=== PATIENT | female | born 1990 | race Caucasian/White ===

== ENCOUNTER 2017-01-08 04:32 | Inpatient (IN) | payer OTHER ==
[~2017-01-08] VITALS: Ht 152.4 cm; Wt 77.6 kg
[2017-01-08 05:06] LABS: microscopic required? NO
[2017-01-08 05:17] LABS: urine erythrocyte NEGATIVE (NEGATIVE)
[2017-01-08 05:20] LABS: BASOPHIL % 0.3 % (0-2); PLATELET COUNT 363 x10^3mcL (130-400); RED CELL DISTRIBUTION WIDTH 14.5 % (11.5-14.5)
[2017-01-08 06:59] LABS: PHOSPHOROUS 2.9 mg/dL (2.5-4.9)
[2017-01-08 07:26] LABS: T3 TOTAL 1.52 ng/mL
[2017-01-08 07:30] VITALS: BP 111/69
[2017-01-08 07:31] LABS: AMPHETAMINE QUAL UR NONE DETECTED (NEG <=1000)
[2017-01-08 07:42] LABS: FREE T4 1.21 ng/dL (0.76-1.46)
[2017-01-08 09:25] LABS: CALCIUM 8.7 mg/dL (8.5-10.1); CARBON DIOXIDE 21.8 mmol/L (21-32); CHLORIDE SERUM 102 mmol/L (98-107); CREATININE SERUM 0.7 mg/dL (0.6-1.0); GFR1 > 60 mL/min; GLUCOSE SERUM 97 mg/dL (74-106); POTASSIUM SERUM 3.7 mmol/L (3.5-5.1); SODIUM SERUM 138 mmol/L (136-145)
[2017-01-08 11:18] VITALS: BP 111/69
[2017-01-08 13:06] VITALS: BP 91/59
[2017-01-08 17:38] VITALS: BP 108/62
[2017-01-08 21:14] VITALS: BP 102/54
[2017-01-09 06:01] VITALS: BP 100/61
[2017-01-09 07:00] LABS: BASOPHIL % 0.7 % (0-2); PLATELET COUNT 221 x10^3mcL (130-400)
[2017-01-09 07:33] LABS: CALCIUM 7.9 mg/dL (8.5-10.1); CARBON DIOXIDE 21.2 mmol/L (21-32); CHLORIDE SERUM 105 mmol/L (98-107); CREATININE SERUM 0.6 mg/dL (0.6-1.0); GFR1 > 60 mL/min; GLUCOSE SERUM 64 mg/dL (74-106); POTASSIUM SERUM 3.8 mmol/L (3.5-5.1); SODIUM SERUM 136 mmol/L (136-145)
[2017-01-09 09:15] VITALS: BP 112/61
[2017-01-09 13:48] VITALS: BP 107/42
[2017-01-09 16:21] VITALS: BP 107/54; BP 90/51
[2017-01-09 20:56] VITALS: BP 103/73
[2017-01-10 05:51] VITALS: BP 92/50
[2017-01-10 06:11] LABS: BASOPHIL % 0.4 % (0-2); PLATELET COUNT 233 x10^3mcL (130-400); RED CELL DISTRIBUTION WIDTH 13.8 % (11.5-14.5)
[2017-01-10 06:28] LABS: CALCIUM 8.1 mg/dL (8.5-10.1); CARBON DIOXIDE 23.3 mmol/L (21-32); CHLORIDE SERUM 106 mmol/L (98-107); CREATININE SERUM 0.6 mg/dL (0.6-1.0); GFR1 > 60 mL/min; GLUCOSE SERUM 76 mg/dL (74-106); POTASSIUM SERUM 3.6 mmol/L (3.5-5.1); SODIUM SERUM 137 mmol/L (136-145)
[2017-01-10 09:28] VITALS: BP 109/74
[2017-01-10 09:41] VITALS: BP 109/74
[2017-01-10 11:53] VITALS: BP 103/54
[2017-01-10] MEDS ORDERED: PHARMASSURE FO0.4 MG PO (13:35)
== END 2017-01-10 17:40 | disposition home or self-care (01) | DRG 566 ==
LOC: ED 04:32 → DU 06:26
PROVIDERS: Emergency Medicine Emergency Medical Services; ADMIT Family Medicine Sports Medicine
DX: O99.211 Obesity complicating pregnancy, first trimester (principal); E66.9 Obesity, unspecified; O99.511 Diseases of the respiratory system complicating pregnancy, first trimester; F12.10 Cannabis abuse, uncomplicated; Z88.0 Allergy status to penicillin; Z68.33 Body mass index [BMI] 33.0-33.9, adult
CPT/HCPCS: 82962; 84439; J0696; J1170; J1200; J1885; J1956; J2060; J2405; J3010; J7030; Q0092

== ENCOUNTER 2017-04-10 21:59 | Emergency (ER) | payer OTHER ==
[~2017-04-10] VITALS: Ht 165.1 cm; Wt 80.3 kg
[~2017-04-10 21:59] MED LIST: PHARMASSURE FO0.4 MG PO
[2017-04-10 22:12] VITALS: Ht 165.1 cm; Wt 80.3 kg
[2017-04-10 22:53] LABS: BASOPHIL % 0.4 % (0-2); PLATELET COUNT 275 x10^3mcL (130-400); RED CELL DISTRIBUTION WIDTH 13.6 % (11.5-14.5)
[2017-04-10 23:05] LABS: CALCIUM 8.7 mg/dL (8.5-10.1); CARBON DIOXIDE 22.6 mmol/L (21-32); CHLORIDE SERUM 105 mmol/L (98-107); CREATININE SERUM 0.5 mg/dL (0.6-1.0); GFR1 > 60 mL/min; GLUCOSE SERUM 100 mg/dL (74-106); POTASSIUM SERUM 3.5 mmol/L (3.5-5.1); SODIUM SERUM 139 mmol/L (136-145)
[2017-04-10 23:12] LABS: ALKALINE PHOSPHATASE 99 U/L (46-116); ALT/SGPT 9 U/L (14-59); AST/SGOT 11 U/L (15-37); BILIRUBIN TOTAL 0.2 mg/dL (0.20-1.00); LIPASE 100 IU/L (73-393); TOTAL PROTEIN, SERUM 6.9 g/dL (6.4-8.2)
[2017-04-10 23:13] LABS: ALBUMIN 2.8 g/dL (3.4-5.0)
[2017-04-11 00:08] VITALS: BP 158/101
== END 2017-04-11 00:08 | disposition short-term general hospital (02) ==
LOC: ED 21:59
PROVIDERS: Emergency Medicine
DX: O60.02 Preterm labor without delivery, second trimester (principal); Z3A.18 18 weeks gestation of pregnancy
CPT/HCPCS: J1170; J2270; J3010; J3105; Q0092

== ENCOUNTER 2018-05-28 20:39 | Emergency (ER) | payer OTHER ==
[~2018-05-28] VITALS: Ht 152.4 cm; Wt 87.1 kg
[2018-05-28 21:04] VITALS: Ht 152.4 cm; Wt 87.1 kg
[2018-05-28 22:34] LABS: BASOPHIL % 0.5 % (0-2); PLATELET COUNT 301 x10^3mcL (130-400)
[2018-05-28 22:38] LABS: RED CELL DISTRIBUTION WIDTH 15.5 % (11.5-14.5)
[2018-05-28 22:42] LABS: microscopic required? YES; urine erythrocyte 3+ (NEGATIVE)
[2018-05-28 22:43] LABS: CALCIUM 8.3 mg/dL (8.5-10.1); CHLORIDE SERUM 106 mmol/L (98-107); CREATININE SERUM 0.6 mg/dL (0.6-1.0); GFR1 > 60 mL/min; GLUCOSE SERUM 86 mg/dL (74-106); POTASSIUM SERUM 3.8 mmol/L (3.5-5.1); SODIUM SERUM 139 mmol/L (136-145)
[2018-05-28 22:51] LABS: ALKALINE PHOSPHATASE 129 U/L (46-116); ALT/SGPT 22 U/L (14-59); AST/SGOT 15 U/L (15-37); BILIRUBIN TOTAL 0.18 mg/dL (0.20-1.00); LIPASE 92 IU/L (73-393); TOTAL PROTEIN, SERUM 7.3 g/dL (6.4-8.2)
[2018-05-28 22:52] LABS: ALBUMIN 3.3 g/dL (3.4-5.0)
[2018-05-29 00:50] VITALS: BP 106/78
== END 2018-05-29 00:50 | disposition home or self-care (01) ==
LOC: ED 20:39
PROVIDERS: Emergency Medicine
DX: J02.9 Acute pharyngitis, unspecified (principal); N93.9 Abnormal uterine and vaginal bleeding, unspecified; R10.30 Lower abdominal pain, unspecified; R10.2 Pelvic and perineal pain; J45.909 Unspecified asthma, uncomplicated; I10 Essential (primary) hypertension; Z88.0 Allergy status to penicillin
CPT/HCPCS: 36415; 86308; J1885; J2270; Q0092

== ENCOUNTER 2018-11-17 08:14 | Inpatient (IN) | payer OTHER ==
[~2018-11-17] VITALS: Ht 152.4 cm; Wt 87.1 kg
--- NOTE | 2018-11-17 08:22 | NUR ---
PT WALKED TOR OOM 9 WITH ABD PAIN 10/10. PT WAS SEEN BY DR. MITCHELL.
--- NOTE | 2018-11-17 08:30 | NUR ---
PT WAS MOVED TO BED 14. TORADOL GIVEN IVP. REPORT ENDORSED TO KAT MENDOZA.
[2018-11-17 08:32] LABS: BASOPHIL % 0.3 % (0-2); PLATELET COUNT 325 x10^3mcL (130-400); RED CELL DISTRIBUTION WIDTH 13.9 % (11.5-14.5)
--- NOTE | 2018-11-17 08:42 | NUR ---
PT PRESENTS WITH BLQ ABDOMINAL PAIN SINCE YESTERDAY. PT STS PAIN IS 10/10 AND IS CRYING AND SCREAMING ON GURNEY. PT DENIES N/V/D. PT UNABLE TO STATE WHAT PAIN FEELS LIKE. PT PLACE ON MONITOR, AAOX4, VSS, WILL CONTINUE TO MONITOR. AWARE OF PT PAIN.
[2018-11-17 08:49] LABS: CALCIUM 8.2 mg/dL (8.5-10.1); CARBON DIOXIDE 22.5 mmol/L (21-32); CHLORIDE SERUM 108 mmol/L (98-107); CREATININE SERUM 0.7 mg/dL (0.6-1.0); GFR1 > 60 mL/min; GLUCOSE SERUM 97 mg/dL (74-106); POTASSIUM SERUM 3.6 mmol/L (3.5-5.1); SODIUM SERUM 143 mmol/L (136-145)
[2018-11-17 08:53] LABS: ALBUMIN 3.6 g/dL (3.4-5.0); ALKALINE PHOSPHATASE 116 U/L (46-116); ALT/SGPT 19 U/L (14-59); AMYLASE 44 U/L (25-115); AST/SGOT 14 U/L (15-37); BILIRUBIN TOTAL 0.4 mg/dL (0.20-1.00); LIPASE 69 IU/L (73-393); TOTAL PROTEIN, SERUM 7.7 g/dL (6.4-8.2)
--- NOTE | 2018-11-17 08:57 | NUR ---
ULTRA SOUND AT BEDSIDE.
--- NOTE | 2018-11-17 09:51 | NUR ---
PT AMBULATED TO BEDSIDE COMMODE TO GIVE URINE. PT STILL C/O 10/[address] MITCHELL MADE AWARE.
--- NOTE | 2018-11-17 13:13 | NUR ---
UPDATED DR. MILLER ON PT STATUS VITALS, LAB WORK AND MEDICATIONS.
--- NOTE | 2018-11-17 14:02 | NUR ---
REPORT GIVEN TO KELLY FERNANDEZ IN ICU UNIT TO ASSUME CARE OF PT.
[2018-11-17 14:18] LABS: microscopic required? YES; urine erythrocyte TRACE (NEGATIVE)
--- NOTE | 2018-11-17 14:20 | NUR ---
PT ADMITTED AT THIS TIME FOR OBSERVATION BEFORE SURGERY FOR PERFORATED VISCUS. VITAL SIGNS: HR 90, BP 131/90 (114), O2 98 ON RA, TEMP 99.9 ORAL, RR 18. PT C/O PAIN 10/10 IN ABDOMEN. VITAL SIGNS STABLE. AO X 4, ABLE TO FOLLOW SOME COMMANDS AND COMMUNICATE NEEDS. PT ON ROOM AIR. WILL CONTINUE TO MONITOR.
[2018-11-17 14:55] LABS: AMPHETAMINE QUAL UR NONE DETECTED (See below)
--- NOTE | 2018-11-17 15:04 | NUR ---
PT TAKEN TO SURGERY. VITAL SIGNS STABLE.
[2018-11-17 16:03] VITALS: BP 131/90
--- NOTE | 2018-11-17 18:30 | NUR ---
PT BACK ON UNIT FROM OR, EXTUBATED. BITE BLOCK IN PLACE & SIMPLE MASK @ 6 LPM. VITAL SIGNS STABLE. HR 73, BP 109/55, SPO2 97%, RR 19. PT NOT FULLY AWAKE YET TO SEDATION, OPENS EYES TO TOUCH STIMULUS. PULSES MODERATE X 4. NO S/S RESPIRATORY DISTRESS. LUNG SOUNDS CTA.
--- NOTE | 2018-11-17 18:47 | NUR ---
SPOKE WITH PHARMACIST CHECO AND INFORMED HER THAT THE ANTIBIOTICS NEED TO BE RETIMED THEY WERE MISSED DUE TO PATIENT IN SURGERY. PER PHARMACIST SHE WILL RETIME THEM FOR 1999.
[2018-11-17 18:50] LABS: BASOPHIL % 0 % (0-2); PLATELET COUNT 258 x10^3mcL (130-400); RED CELL DISTRIBUTION WIDTH 13.8 % (11.5-14.5)
[2018-11-17 18:57] LABS: CALCIUM 7.3 mg/dL (8.5-10.1); CARBON DIOXIDE 24.4 mmol/L (21-32); CHLORIDE SERUM 109 mmol/L (98-107); CREATININE SERUM 0.7 mg/dL (0.6-1.0); GFR1 > 60 mL/min; GLUCOSE SERUM 113 mg/dL (74-106); POTASSIUM SERUM 3.1 mmol/L (3.5-5.1); SODIUM SERUM 143 mmol/L (136-145)
[2018-11-17 19:30] VITALS: BP 136/74
--- NOTE | 2018-11-17 20:01 | NUR ---
LAB CALLED, INFORMED THAT THE PERITONEAL FLUID COLLECTION FROM OR TEAM WAS COLLECTED IN A MRSA SWAB AND THEREFORE CANNOT BE CULTURED. DR. ANDERSON MADE AWARE AT THIS TIME.
--- NOTE | 2018-11-17 20:05 | NUR ---
PT REPORTING 10/10 GEN ABD PAIN SHARP IN QUALITY. PT MEDICATED WITH MORPHINE 2MG IVP PER EMAR. ABD BINDER REMAINS INTACT, MID ABD INCISION DRESSING REMAINS CDI. JAMEL DRAIN INTACT AND DRAINING SANGOUNOUSE FLUID APPROX 25 ML IN JAMEL DRAIN BULB SUCTION.
--- NOTE | 2018-11-17 20:35 | NUR ---
PT REPORTING 10/[address] ANDERSON MADE AWARE.
--- NOTE | 2018-11-17 21:02 | NUR ---
PT SCREAMING IN [place] AT THIS TIME. HITTING SIDE RAILS. DR. ANDERSON MADE AWARE VIA TELEPHONE.
--- NOTE | 2018-11-17 21:08 | NUR ---
PT MEDICATED WITH DILAUDID AND ATIVAN IVP PER EMAR. RELAXATION AND DISTRACTION TECHNIQUES IMPLEMENTED.
--- NOTE | 2018-11-17 22:05 | NUR ---
IV INITATED TO RIGHT HAND 22G, PORT PATENT, NO S/S OF INFILTRATION, DRESSING CDI.
[2018-11-17 23:09] VITALS: BP 105/58
--- NOTE | 2018-11-18 02:22 | NUR ---
PT REPORTING 7/10 GENERALIZED ABD PAIN SHARP IN QUALITY. PT MEDICATED WITH MORPHINE IVP PER EMAR. RELAXATION AND THEREAPUETIC TOUCH MEASURES IMPLEMENTED. WILL CONT TO MONITOR.
[2018-11-18 03:07] VITALS: BP 108/73
--- NOTE | 2018-11-18 03:51 | NUR ---
BUTTER MAKER MAITE AT BEDSIDE FOR BLOOD DRAW AM LABS.
[2018-11-18 03:57] LABS: PLATELET COUNT 269 x10^3mcL (130-400); RED CELL DISTRIBUTION WIDTH 13.2 % (11.5-14.5)
[2018-11-18 04:13] LABS: BASOPHIL % 0 % (0-2)
[2018-11-18 04:24] LABS: CALCIUM 7.7 mg/dL (8.5-10.1); CHLORIDE SERUM 107 mmol/L (98-107); CREATININE SERUM 0.7 mg/dL (0.6-1.0); GFR1 > 60 mL/min; GLUCOSE SERUM 134 mg/dL (74-106); MAGNESIUM 1.8 mg/dL (1.8-2.4); PHOSPHOROUS 2.4 mg/dL (2.5-4.9); POTASSIUM SERUM 3.5 mmol/L (3.5-5.1); SODIUM SERUM 140 mmol/L (136-145)
--- NOTE | 2018-11-18 05:13 | NUR ---
DR. FRNACO AT BEDSIDE SPEAKING WITH PATIENT ON PLAN OF CARE AND ASSESSMENT.
--- NOTE | 2018-11-18 05:30 | NUR ---
PT REPORTING 10/10 GENERALIZED ABD PAIN SHARP IN QUALITY. PT MEDICATED WITH MORPHINE IVP PER EMAR. RELAXATION AND THEREAPUETIC TOUCH MEASURES IMPLEMENTED. DR. FRANCO AT BEDSIDE MADE AWARE.
--- NOTE | 2018-11-18 05:57 | NUR ---
DISH UP PERSON AT BEDSIDE FOR CHEST XRAY.
--- NOTE | 2018-11-18 07:10 | NUR ---
GAVE REPORT TO RUSS MENDOZA. UPDATES PROVIDED, QUESTIONS ANSWERED. ENDORSED CARE.
[2018-11-18 07:42] VITALS: BP 108/70
[2018-11-18 07:51] VITALS: Ht 152.4 cm; Wt 87.1 kg
--- NOTE | 2018-11-18 08:34 | NUR ---
INCENTITIVE SPIROMETER PLACED AT BEDSIDE FOR PATIENT AT THIS TIME. PATIENT STATES THAT THEY ARE IN A LOT OF PAIN. WILL EDUCATE WHEN PATIENT HAS RELIEF FROM PAIN. PATIENT MEDICATED AT THIS TIME, SEE EMAR. WILL CONTINUE TO MONITOR.
--- NOTE | 2018-11-18 09:03 | NUR ---
PATIENT STATED THAT THEY WANTED TO BRUSH THEIR TEETH AT THIS TIME. PATIENT ASSISTED WITH ORAL CARE. PATIENT ALSO EDUCATED ON USAGE OF THE INCENTITIVE SPIROMETER. PATIENT VERBALIZED UNDERSTANDING. WILL CONTINUE TO MONITOR.
--- NOTE | 2018-11-18 10:45 | NUR ---
PATIENT IS YELLING AND STATING THAT THEY ARE IN A LOT OF PAIN. PATIENT EDUCATED ON USING BREATHING EXERCISES AT THIS TIME, AND WARM PACKS WHERE APPLIED TO ABDOMEN. PATIENT ALSO INFORMED THAT IT IS NOT TIME FOR THE PAIN MEDICATION. PATIENT VERBALIZED UNDERSTANDING, WILL CONTINUE TO MONITOR.
--- NOTE | 2018-11-18 10:53 | NUR ---
DR FRANCO PAGED AT THIS TIME REGARDING AN ORDER FOR ADDITIONAL PAIN MED, FOR BREAK THROUGH PAIN. WILL AWAIT ORDERS.
--- NOTE | 2018-11-18 11:00 | NUR ---
PATIENT STATES THAT THEIR PHONE AND IF WE CAN PLEASE CALL HER FRIEND TO BRING A SLOT FLOOR SUPERVISOR. FRIEND CALLED AT THIS TIME AND HE STATES THAT SOMEONE WILL COME.
--- NOTE | 2018-11-18 11:13 | NUR ---
PATIENT MEDICATED AT THIS TIME, FOR PAIN. SEE EMAR. WILL CONTINUE TO MONITOR.
[2018-11-18 11:17] VITALS: BP 110/72
--- NOTE | 2018-11-18 14:10 | NUR ---
PT BACK FROM CT SCAN. DID NOT TOLERATE LAYING FLAT OR TURNING PT WAS CRYING OUT IN PAIN. CONTINUES TO REPORT PAIN 10/10 TO ABD SCREAMING "MY PAIN MY PAIN" MEDICATED WITH MORPHINE 2MG IVP PER PRN ORDERS. CALL LIGHT IN REACH WILL CONT TO MONITOR.
--- NOTE | 2018-11-18 14:30 | NUR ---
PATIENT RESTING COMFORTABLY AT THIS TIME, AND ON HER CELL PHONE. NO S/S OF PAIN AT THIS TIME. WILL CONTINUE TO MONITOR.
[2018-11-18 15:09] VITALS: BP 126/71
--- NOTE | 2018-11-18 16:02 | NUR ---
PATIENT IN BED YELLING THAT SHE IS IN PAIN. EXPLAINED TO PATIENT THAT MORPHINE IS NOT DUE AT THIS TIME. ALSO EDUCATED PATIENT THAT THE CONTINUOUS AMOUNT OF PAIN MEDICATIONS CAN BE HARMFUL AND CAUSE MORE PROBLEMS, SUCH CONSTIPATION. PATIENT STATED " ITS FINE I DON'T CARE" PATIENT INSTRUCTED TO USED DEEP BREATHING EXERCISES AND ALSO GIVEN WARM PACK FOR ABDOMEN. PATIENT INSTRUCTED TO USE INCENTITIVE SPIROMETER, AND STATED "NO" AND BANGED THE INCENTITIVE SPIROMETER ON THE BED. EDUCATED PATIENT ON THE PURPOSE AND IMPORATANCE OF THE INCENTITIVE SPIROMETER. PATIENTS VITALS STABLE. WILL CONTINUE TO MONITOR.
--- NOTE | 2018-11-18 16:35 | NUR ---
REPORT GIVEN TO KELLY WATSON AT THIS TIME. ALL QUESTIONS ANSWERED AT THIS TIME.
--- NOTE | 2018-11-18 16:50 | NUR ---
PATIENT TRANSFERRED AT THIS TIME. PATIENT FREE FROM ANY DISTRESS AT THIS TIME. KELLY WATSON AT PATIENT BEDSIDE. ALL QUESTIONS ANSWERED. BELONGINGS TAKEN UPSTAIRS WITH PATIENTS FRIEND.
[2018-11-18 17:00] VITALS: BP 114/69
--- NOTE | 2018-11-18 17:16 | NUR ---
LATE ENTRY: RECEIVED PT FROM ICU VIA [facility]. PT YELLING IN PAIN, GRIMACING. RATES ABD. PAIN 10/10. GIVEN IV PAIN MED. REPORTS PAIN CONTINUOUS. WORSE WITH MOVEMENT/PALPATION. ACHING. DRESSING TO MID ABDOMEN CDI. JAMEL DRAINING TO BULB SUCTION WITH SANGUIOUS DRAINAGE NOTED. IV WNL TO RH/LAC, PATENT AND FLUSH WELL. NO N/V. NO S/S OF ACUTE RESPIRATORY DISTRESS. NSR ON TELE 11. VS STABLE: HR 73, TEMP 97.1F, O2 SAT 94% ON ROOM AIR. NGT TO LEFT NARE, DISCONNECTED FROM SUCTION DUE TO SMALL BOWEL FOLLOW THROUGH STUDY IN PLACE. SIGNIFICANT OTHER AT BEDSIDE. PT ORIENTED TO SURROUNDINGS. SIDE RAILS UP X2. RAMIREZ IN TACT DRAINING TO GRAVITY. INSTRUCTED TO USE CALL LIGHT TO CALL FOR ASSISTANCE PRN AND BEFORE GETTING OOB. VERBALIZED UNDERSTANDING. BED IN LOW POSITION. CALL LIGHT WITHIN REACH. WILL CONTINUE TO MONITOR.
--- NOTE | 2018-11-18 18:49 | NUR ---
PT LAYING IN BED. AA/OX4, NO S/S OF ACUTE DISTRESS. RESTING IN BED WITH BOTH EYES CLOSED. VISITOR AT BEDSIDE. NO CHEST PAIN. RAMIREZ IN TACT. OUTPUT 250CC, URINE CLEAR/YELLOW. JAMEL DRAIN TO ABD. TO BULB SUCTION. OUTPUT 20CC SEROSANGUINOUS AT THIS TIME. NGT TO LEFT NARE IN TACT. STRICT NPO IN PLACE. ABDOMINAL DRESSING CDI. IVS TO RH/LAC, IV FLUIDS FLOWING. NO SOB ON ROOM AIR. BED IN LOW POSITION. CALL LIGHT WITHIN REACH. WILL ENDORSE TO ONCOMING SHIFT.
[2018-11-18 19:34] VITALS: BP 128/81
--- NOTE | 2018-11-18 19:39 | NUR ---
RECEIVED PT FROM PREVIOUS SHIFT. PT A/OX4. C/O 12/11 PAIN, MEDICATED ON PREVIOUS SHIFT. PT STATES SHE DOES NOT WANT TO BE MEDICATED UNTIL AFTER IMAGING OF ABD IS COMPLETED. FAMILY AT BEDSIDE. PT WITH ABD BINDER CDI. REFUSED VISUAL ASSESSMENT OF INCISION AT THIS TIME. IV PATENT. CALL LIGHT WITHIN REACH, BED IN LOW POSITION. WILL CONTINUE TO MONITOR.
--- NOTE | 2018-11-18 20:45 | NUR ---
PT SCREAMING AND CRYING IN PAIN 12/11 TO ABD. REQUESTING TO SEE PHYSICIAN. DR ANDERSON PAGED AT THIS TIME.
--- NOTE | 2018-11-19 01:31 | NUR ---
PT RESTING IN NO ACUTE DISTRESS. RR EVEN AND UNLABORED. CALL LIGHT WITHIN REACH, BED IN LOW POSITION. WILL CONTINUE TO MONITOR.
[2018-11-19 05:36] VITALS: BP 119/81
[2018-11-19 07:11] LABS: CARBON DIOXIDE 26.2 mmol/L (21-32); CHLORIDE SERUM 105 mmol/L (98-107); CREATININE SERUM 0.6 mg/dL (0.6-1.0); GFR1 > 60 mL/min; GLUCOSE SERUM 93 mg/dL (74-106); MAGNESIUM 1.8 mg/dL (1.8-2.4); PHOSPHOROUS 2.3 mg/dL (2.5-4.9); SODIUM SERUM 141 mmol/L (136-145)
[2018-11-19 07:16] LABS: POTASSIUM SERUM 2.8 mmol/L (3.5-5.1)
--- NOTE | 2018-11-19 07:21 | NUR ---
REPORT TAKEN FROM OIL AGENT NURSE AT THE BEDSIDE, PATIENT REPORT ABD PAIN AT THIS TIME, MEDICATED PER PRN ORDERS PRIOR TO START OF MY SHIFT, WILL CONTINUE TO MONITOR.
[2018-11-19 07:23] LABS: BASOPHIL % 0.2 % (0-2); PLATELET COUNT 262 x10^3mcL (130-400); RED CELL DISTRIBUTION WIDTH 13.6 % (11.5-14.5)
[2018-11-19 08:53] VITALS: BP 116/72
--- NOTE | 2018-11-19 13:17 | NUR ---
PER PROVIDER ORDERS, RAMIREZ CATH DC'D, NG TUBE DC'D FROM LEFT NARE, PT TOLERATED WELL
[2018-11-19 13:20] VITALS: BP 124/78
--- NOTE | 2018-11-19 14:33 | NUR ---
PATIENT BACK FROM CT AT THIS TIME, VITALS ASSESSED BP 129/84, HR 100, O2 SAT 99 ON 1L OF O2, TEMP 97.4. WILL CONTINUE TO MONITOR.
--- NOTE | 2018-11-19 16:03 | NUR ---
PT REFUSED ENEMA AND SUPPOSITORY, REQUESTED PAIN MEDICATION INSTEAD, CHARGE NURSE MADE AWARE, WILL PAGE RESIDENT TO INFORM.
[2018-11-19 16:29] VITALS: BP 133/75
--- NOTE | 2018-11-19 19:22 | NUR ---
REPORT GIVEN TO BRICK YARD HAND NURSE CARE ENDORSED
--- NOTE | 2018-11-19 19:30 | NUR ---
PT. RECIEVED FROM DAY NURSE. PT RESTING IN BED AT THIS TIME. STATES 8/10 PAIN AND DISCOMFORT AT THIS TIME. DR. JUSTIN MARCUM, STATED HE WILL ORDER TORADOL FOR PT. PT A/OX4, CALM AND COOPERATIVE AT THIS TIME. TELE 11, SR AT THIS TIME. DENIES CP, NV, DIZZINESS, AND PALPATATIONS. PALPABLE PULSES, NO EDEMA NOTED. BREATHING E/U ON 1L NC. SPO2 100%. ABD SOFT AND ROUND. MIDLINE SURGICAL WOUND INTACT WITH JORGITO, DRESSED LIGHTLY WITH ABD PAD. CDI. RH IV, CDI. BED AT LOWEST POSITION. CALL LIGHT WITHIN REACH. WILL CONTINUE TO MONITOR.
[2018-11-19 20:32] VITALS: BP 116/80
--- NOTE | 2018-11-19 20:50 | NUR ---
PT COMPLAINING OF 6/10 ABD PAIN. MEDICATED WITH PRN TORADOL. WILL CONTINUE TO MONITOR.
[2018-11-20 05:06] VITALS: BP 112/71
--- NOTE | 2018-11-20 07:10 | NUR ---
RECEIVED PATIENT FROM PHILLIP MENDOZA. PATIENT RESTING COMFORTABLY IN BED WITH ALL NEEDS MET. PT ON ROOM AIR. NO C/O SOB AND NO DISTRESS NOTED.IV TO RH IS PATENT AND INFUSING D5 1/2 NS @ 100 ML/HR. NO REDNESS OR PAIN. TELE # [address] PT DENIES CHEST PAIN. ALL QUESTIONS AND CONCERNS ADDRESSED.
[2018-11-20 07:31] LABS: CALCIUM 7.5 mg/dL (8.5-10.1); CARBON DIOXIDE 23.9 mmol/L (21-32); CHLORIDE SERUM 104 mmol/L (98-107); CREATININE SERUM 0.5 mg/dL (0.6-1.0); GFR1 > 60 mL/min; GLUCOSE SERUM 89 mg/dL (74-106); MAGNESIUM 1.7 mg/dL (1.8-2.4); PHOSPHOROUS 2.5 mg/dL (2.5-4.9); POTASSIUM SERUM 3.1 mmol/L (3.5-5.1); SODIUM SERUM 138 mmol/L (136-145)
[2018-11-20 07:44] LABS: BASOPHIL % 0.3 % (0-2); PLATELET COUNT 280 x10^3mcL (130-400); RED CELL DISTRIBUTION WIDTH 13.5 % (11.5-14.5)
[2018-11-20 08:23] VITALS: BP 107/72
--- NOTE | 2018-11-20 08:56 | NUR ---
IN TO SEE PATIENT AND ADMINISTER MEDICATION (SEE eMAR). PATIENT RESTING COMFORTABLY IN BED WITH ALL NEEDS MET.
[2018-11-20 11:50] VITALS: BP 132/66
--- NOTE | 2018-11-20 12:47 | NUR ---
IN TO SEE AND ASSESS PATIENT BEFORE LUNCH. PATIENT RESTING IN BED WITH FAMILY AT BEDSIDE. PAIN MEDICATION ADMINISTERED. WILL REASSESS AFTER LUNCH.
[2018-11-20] MEDS ORDERED: LEVAQUIN750 MG PO (12:51)
[2018-11-20] MEDS ORDERED: TRAMADOL HCL50 MG PO (12:51)
[2018-11-20] MEDS ORDERED: MIRALAX17 GM/Dose PO (13:00)
--- NOTE | 2018-11-20 13:40 | NUR ---
IN TO SEE AND ASSESS PATIENT AFTER LUNCH. PT REPORTS SHE ATTEMPTED TO GET UP ALONE AND NOT HAS SEVERE ABDOMINAL PAIN. ASSISTED PATIENT BACK TO BED. TORADOL IVP ADMINISTERED AND WILL REASSESS. INSTRUCTED PATIENT TO CALL FOR ASSISTANCE GETTING OUT OF BED TO PREVENT INJURY. PT VERBALIZED UNDERSTANDING.
--- NOTE | 2018-11-20 14:45 | NUR ---
IN TO SEE PATIENT TO NOTIFY THAT SHE HAS BEEN CLEARED BT DR MILLER FOR DISCHARGE. PATIENT REQUESTED SHOWER BEFORE DISCHARGE. AVINASH CAIN CALLED FOR OK TO SHOWER. ANT CRUZ.
[2018-11-20 15:11] VITALS: BP 132/66
--- NOTE | 2018-11-20 16:03 | NUR ---
PATIENT STABLE FOR DISCHARGE PER MD. DISCHARGE INSTRUCTIONS DISCUSSED. PATIENT VERBALIZED UNDERSTANDING AND ALL QUESTIONS AND CONCERNS WERE ADDRESSED. DISCHARGE PICTURES TAKEN. ID BANDS CUT. IVS REMOVED AND IV POLE CLEARED. TELE MONITOR REMOVED AND MONITOR NOTIFIED. PATIENT ESCORTED TO LOBBY VIA WHEELCHAIR.
== END 2018-11-20 16:32 | disposition home or self-care (01) | DRG 229 ==
LOC: ED 08:14 → DU 12:35 → IC 12:35 → DU 11-18 16:52
PROVIDERS: Emergency Medicine; Surgery; ADMIT Internal Medicine
PROC: 0WJG0ZZ Inspection of Peritoneal Cavity, Open Approach (ICD-10-PCS; principal; 2018-11-17 15:30)
DX: K63.1 Perforation of intestine (nontraumatic) (principal); E87.8 Other disorders of electrolyte and fluid balance, not elsewhere classified; K66.8 Other specified disorders of peritoneum; E83.39 Other disorders of phosphorus metabolism; E83.51 Hypocalcemia; J45.909 Unspecified asthma, uncomplicated; Z68.35 Body mass index [BMI] 35.0-35.9, adult
CPT/HCPCS: 94150; A9698; C9113; G0378; J0330; J0694; J1170; J1885; J1956; J2060; J2175; J2250; J2270; J2405; J2543; J2704; J2710; J2765; J3010; J3475; J3480; J3490; J7030; J7040; J7120; Q0092; Q9967; Q9968

== ENCOUNTER 2018-11-28 12:20 | Emergency (ER) | payer OTHER ==
[~2018-11-28] VITALS: Ht 152.4 cm; Wt 75.7 kg
[~2018-11-28 12:20] MED LIST changes: +LEVAQUIN750 MG PO; +MIRALAX17 GM/Dose PO; +TRAMADOL HCL50 MG PO
[2018-11-28 12:24] VITALS: Ht 152.4 cm; Wt 75.7 kg
[2018-11-28 12:45] LABS: BASOPHIL % 0.4 % (0-2); PLATELET COUNT 397 x10^3mcL (130-400); RED CELL DISTRIBUTION WIDTH 13.1 % (11.5-14.5)
[2018-11-28 12:56] LABS: CARBON DIOXIDE 25.5 mmol/L (21-32); CHLORIDE SERUM 104 mmol/L (98-107); CREATININE SERUM 0.7 mg/dL (0.6-1.0); GFR1 > 60 mL/min; GLUCOSE SERUM 99 mg/dL (74-106); POTASSIUM SERUM 4.1 mmol/L (3.5-5.1); SODIUM SERUM 139 mmol/L (136-145)
[2018-11-28 13:00] LABS: ALBUMIN 3.7 g/dL (3.4-5.0); ALKALINE PHOSPHATASE 119 U/L (46-116); ALT/SGPT 21 U/L (14-59); AST/SGOT 18 U/L (15-37); BILIRUBIN TOTAL 0.3 mg/dL (0.20-1.00); LIPASE 148 IU/L (73-393)
[2018-11-28 13:01] LABS: TOTAL PROTEIN, SERUM 8.4 g/dL (6.4-8.2)
[2018-11-28 17:14] VITALS: BP 101/62
== END 2018-11-28 17:14 | disposition home or self-care (01) ==
LOC: ED 12:20
PROVIDERS: Emergency Medicine
DX: R10.10 Upper abdominal pain, unspecified (principal); R50.9 Fever, unspecified; R11.2 Nausea with vomiting, unspecified; Z88.0 Allergy status to penicillin; Z98.890 Other specified postprocedural states
CPT/HCPCS: J2270; J2405; Q9967

== ENCOUNTER 2019-01-06 16:31 | Inpatient (IN) | payer OTHER ==
[~2019-01-06] VITALS: Ht 152.4 cm; Wt 84.4 kg
[2019-01-06 16:36] VITALS: Ht 152.4 cm; Wt 84.4 kg
[2019-01-06 17:18] LABS: BASOPHIL % 0.5 % (0-2); PLATELET COUNT 334 x10^3mcL (130-400); RED CELL DISTRIBUTION WIDTH 13.6 % (11.5-14.5)
[2019-01-06 17:33] LABS: CALCIUM 8.2 mg/dL (8.5-10.1); CARBON DIOXIDE 26.4 mmol/L (21-32); CHLORIDE SERUM 105 mmol/L (98-107); CREATININE SERUM 0.7 mg/dL (0.6-1.0); GFR1 > 60 mL/min; GLUCOSE SERUM 81 mg/dL (74-106); POTASSIUM SERUM 3.6 mmol/L (3.5-5.1); SODIUM SERUM 140 mmol/L (136-145)
[2019-01-06 17:37] LABS: ALBUMIN 3.6 g/dL (3.4-5.0); ALKALINE PHOSPHATASE 124 U/L (46-116); ALT/SGPT 11 U/L (14-59); AST/SGOT 11 U/L (15-37); BILIRUBIN TOTAL 0.2 mg/dL (0.20-1.00); LIPASE 76 IU/L (73-393); TOTAL PROTEIN, SERUM 7.8 g/dL (6.4-8.2)
[2019-01-06 18:11] LABS: microscopic required? YES; urine erythrocyte 3+ (NEGATIVE)
[2019-01-06 20:40] VITALS: BP 110/69
[2019-01-06 20:47] LABS: AMPHETAMINE QUAL UR NONE DETECTED (See below)
[2019-01-07 05:14] VITALS: BP 92/42
[2019-01-07 06:14] VITALS: BP 96/52
[2019-01-07 06:22] LABS: BASOPHIL % 0.3 % (0-2); PLATELET COUNT 268 x10^3mcL (130-400); RED CELL DISTRIBUTION WIDTH 13.8 % (11.5-14.5)
[2019-01-07 06:41] LABS: CALCIUM 7.5 mg/dL (8.5-10.1); CARBON DIOXIDE 26.8 mmol/L (21-32); CHLORIDE SERUM 109 mmol/L (98-107); CREATININE SERUM 0.7 mg/dL (0.6-1.0); GFR1 > 60 mL/min; GLUCOSE SERUM 78 mg/dL (74-106); MAGNESIUM 1.5 mg/dL (1.8-2.4); PHOSPHOROUS 3.1 mg/dL (2.5-4.9); POTASSIUM SERUM 3.6 mmol/L (3.5-5.1); SODIUM SERUM 142 mmol/L (136-145)
[2019-01-07 08:15] VITALS: BP 94/51
[2019-01-07 11:41] VITALS: BP 93/40
[2019-01-07 16:08] VITALS: BP 109/68
[2019-01-07 21:25] VITALS: BP 100/62
[2019-01-08 05:54] VITALS: BP 105/60
[2019-01-08 06:47] LABS: CALCIUM 8.1 mg/dL (8.5-10.1); CARBON DIOXIDE 25.8 mmol/L (21-32); CHLORIDE SERUM 106 mmol/L (98-107); CREATININE SERUM 0.6 mg/dL (0.6-1.0); GFR1 > 60 mL/min; GLUCOSE SERUM 77 mg/dL (74-106); MAGNESIUM 1.9 mg/dL (1.8-2.4); PHOSPHOROUS 3.1 mg/dL (2.5-4.9); POTASSIUM SERUM 3.8 mmol/L (3.5-5.1); SODIUM SERUM 140 mmol/L (136-145)
[2019-01-08 08:16] VITALS: BP 105/63
[2019-01-08] MEDS ORDERED: LEVOFLOXACIN500 M1 PO (10:34)
[2019-01-08 10:56] VITALS: BP 105/63
[2019-01-08 11:12] LABS: BASOPHIL % 0.2 % (0-2); PLATELET COUNT 282 x10^3mcL (130-400); RED CELL DISTRIBUTION WIDTH 13.7 % (11.5-14.5)
[2019-01-08 11:47] VITALS: BP 112/75
== END 2019-01-08 14:08 | disposition home or self-care (01) | DRG 463 ==
LOC: ED 16:31 → DU 19:44 → MU 19:44 → DU 20:21
PROVIDERS: Emergency Medicine; ADMIT Internal Medicine
DX: N39.0 Urinary tract infection, site not specified (principal); E83.51 Hypocalcemia; F45.41 Pain disorder exclusively related to psychological factors; B96.20 Unspecified Escherichia coli [E. coli] as the cause of diseases classified elsewhere; N83.201 Unspecified ovarian cyst, right side; J45.909 Unspecified asthma, uncomplicated; E66.9 Obesity, unspecified; Z68.35 Body mass index [BMI] 35.0-35.9, adult; Z87.442 Personal history of urinary calculi; Z87.440 Personal history of urinary (tract) infections
CPT/HCPCS: G0378; J0696; J1885; J2060; J2405; J3010; J3490; J7030; J7060; Q0092